=== PATIENT | male | born 1990 | race Two or more races ===

== ENCOUNTER 2020-11-11 17:54 | Emergency (ER) | payer SELFPAY ==
[2020-11-11] MEDS ORDERED: predniSONE 20 MG TABLET PO STA (18:36)
[2020-11-11] MEDS ORDERED: IPRATROPIUM/ALBUTEROL 3 ML NEB INH STA (18:36)
[2020-11-11] MEDS ORDERED: IPRATROPIUM/ALBUTEROL 3 ML NEB INH ONE (19:11)
--- NOTE | 2020-11-11 19:25 | XRAY Report ---
PROCEDURE: Chest 1 View X-Ray INDICATIONS: cough, wheezing, fever TECHNIQUE: One view of the chest was acquired. COMPARISON: None FINDINGS: Surgical changes and devices: None. Lungs and pleura: No pleural effusions or pneumothorax. Lungs are clear. Mediastinum: Mediastinal contours appear normal. Heart size is normal. Bones and chest wall: No suspicious bony lesions. Overlying soft tissues appear unremarkable. IMPRESSION: No acute process. Reviewed by: Luis Xiong MD on 11/11/2020 7:23 PM PDT Approved by: Lius Xiong MD on 11/11/2020 7:23 PM PDT Station ID: [id number]
[2020-11-11] MEDS ORDERED: predniSONE 20 MG TABLET ONE (19:35)
[2020-11-11 19:54] LABS: VBG BASE EXCESS -1.5 mmol/L (-2 - +2); VBG HCO3 22.3 mmol/L (23-28); VBG OXYGEN SATURATION 70.7 % (60-80); VBG PCO2 35.6 mmHg (41-51); VBG PH 7.415 (7.31-7.41); VBG PO2 33.8 mmHg (25-47); VBG TOTAL CO2 23.4 mmol/L (24-29)
[2020-11-11 19:57] LABS: BASOPHILS % (AUTO) 0.3 %; EOSINOPHILS # (AUTO) 0.1 10^3/uL (0.0-0.7); EOSINOPHILS % (AUTO) 1.9 %; HCT - HEMATOCRIT 48.7 % (42.0-52.0); HGB - HEMOGLOBIN 16.6 g/dL (14.0-18.0); LYMPHOCYTES # (AUTO) 1.6 10^3/uL (1.5-3.5); LYMPHOCYTES % (AUTO) 26.5 %; MEAN CORPUSCULAR HEMOGLOBIN 29.6 pg (27.0-31.0); MEAN CORPUSCULAR HGB CONC 34.1 g/dL (32.0-36.0); MEAN PLATELET VOLUME 10.7 fL (7.4-11.4); MONOCYTES # (AUTO) 0.9 10^3/uL (0.0-1.0); MONOCYTES % (AUTO) 14.2 %; NEUTROPHILS # (AUTO) 3.5 10^3/uL (1.5-6.6); NEUTROPHILS % (AUTO) 56.9 %; PLT - PLATELET COUNT 221 10^3/uL (130-450); RED CELL DISTRIBUTION WIDTH 12.4 % (12.0-15.0); WHITE BLOOD COUNT 6.2 x10^3/uL (4.8-10.8)
[2020-11-11 20:00] LABS: KETONES, SERUM (ACETEST) SMALL (NEGATIVE)
[2020-11-11 20:07] LABS: ALBUMIN 3.8 g/dL (3.2-5.5); ALBUMIN/GLOBULIN RATIO 1.2 (1.0-2.2); ALKALINE PHOSPHATASE 85 IU/L (42-121); ALT ALANINE AMINOTRANSFERASE 23 IU/L (10-60); AST ASPARTATE AMINOTRANSFERASE 23 IU/L (10-42); BILIRUBIN,TOTAL 0.7 mg/dL (0.2-1.0); BUN - BLOOD UREA NITROGEN 13 mg/dL (6-20); CALCIUM 8.3 mg/dL (8.5-10.3); CARBON DIOXIDE - CO2 21 mmol/L (21-32); CHLORIDE 94 mmol/L (101-111); CREATININE 1.1 mg/dL (0.6-1.2); GFR - MDRD 78 (>89); GLUCOSE 370 mg/dL (70-100); LIPASE 17 U/L (22-51); SODIUM 130 mmol/L (135-145)
--- NOTE | 2020-11-11 20:12 | ED Physician Documentation ---
History of Present Illness - Stated complaint Stated Complaint: POST SHOT SOA & FEVER - Chief complaint Chief Complaint: General - History obtained from History obtained from: Patient - History of Present Illness Timing: How many days ago (3) Pain level max: 2 Pain level now: 2 - Additonal information Additional information: Patient is a 30-year-old male who received his first Covid vaccination 4 days ago. 3 days ago started feeling ill, body aches, fevers, cough, dyspnea. History of asthma and type I diabetic. He is a smoker. 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 He states that his inhaler is not helping at home. Review of Systems Ten Systems: 10 systems reviewed and negative Constitutional: reports: Fever, Chills Nose: denies: Rhinorrhea / runny nose, Congestion GI: denies: Vomiting, Diarrhea Skin: denies: Rash Musculoskeletal: denies: Neck pain, Back pain Neurologic: denies: Headache PD PAST MEDICAL HISTORY - Present Medications Home Medications: Ambulatory Orders Medication Instructions Recorded Confirmed predniSONE [Deltasone] 10 mg PO [id number] #42 tab 11/11/20 - Allergies Allergies/Adverse Reactions: Allergies Allergy/AdvReac Type Severity Reaction Status Date / Time No Known Drug Allergies Allergy Verified 11/11/20 18:05 PD ED PE NORMAL - Vitals Vital signs reviewed: Yes - General General: Alert and oriented X 3, No acute distress, Well developed/nourished - HEENT HEENT: PERRL, Moist mucous membranes - Neck Neck: Supple, no meningeal sign - Cardiac Cardiac: RRR - Respiratory Respiratory: Other (Diminished breath sounds and wheezing bilaterally, mild distress) - Abdomen Abdomen: Soft, Non tender, Non distended - Derm Derm: Warm and dry - Extremities Extremities: No edema - Neuro Neuro: Alert and oriented X 3 - Psych Psych: Normal mood, Normal affect Results - Vitals Vitals: Vital Signs - 24 hr 11/11/20 11/11/20 11/11/20 18:05 19:07 20:00 Temperature 37.9 C Heart Rate 120 H 120 H 115 H Respiratory 18 22 18 Rate Blood Pressure 134/82 H 129/94 H O2 Saturation 97 97 11/11/20 21:20 Temperature 36.6 C Heart Rate 90 Respiratory 18 Rate Blood Pressure 130/90 H O2 Saturation 98 Oxygen O2 Source Room air - Labs Labs: Laboratory Tests 11/11/20 11/11/20 11/11/20 18:55 19:15 19:49 WBC 6.2 RBC 5.60 Hgb 16.6 Hct 48.7 MCV 87.0 MCH 29.6 MCHC 34.1 RDW 12.4 Plt Count 221 MPV 10.7 Neut # (Auto) 3.5 Lymph # (Auto) 1.6 [place] # (Auto) 0.9 Eos # (Auto) 0.1 Baso # (Auto) 0.0 Absolute Nucleated RBC 0.00 Nucleated RBC % 0.0 VBG pH VBG pCO2 VBG pO2 VBG HCO3 VBG Total CO2 VBG O2 Saturation VBG Base Excess Sodium Potassium Chloride Carbon Dioxide Anion Gap BUN Creatinine Estimated GFR (MDRD) Glucose POC Whole Bld Glucose 398 H Calcium Total Bilirubin AST ALT Alkaline Phosphatase Total Protein Albumin Globulin Albumin/Globulin Ratio Lipase Urine Color Urine Clarity Urine pH Ur Specific [place] Urine Protein Urine Glucose (UA) Urine Ketones Urine Occult Blood Urine Nitrite Urine Bilirubin Urine Urobilinogen Ur Leukocyte Esterase Ur Microscopic Review Urine Culture Comments Nasal Adenovirus (PCR) NOT DETECTED Nasal B. parapertussis DNA (PCR) NOT DETECTED Nasal Coronavir 229E PCR NOT DETECTED Nasal Coronavir HKU1 PCR NOT DETECTED Nasal Coronavir NL63 PCR NOT DETECTED Nasal Coronavir OC43 PCR NOT DETECTED Nasal Enterovir/Rhinovir PCR NOT DETECTED Nasal Influenza B PCR NOT DETECTED Nasal Influenza A PCR NOT DETECTED Nasal Parainfluen 1 PCR NOT DETECTED Nasal Parainfluen 2 PCR NOT DETECTED Nasal Parainfluen 3 PCR NOT DETECTED Nasal Parainfluen 4 PCR NOT DETECTED Nasal RSV (PCR) NOT DETECTED Nasal B.pertussis DNA PCR NOT DETECTED Nasal C.pneumoniae (PCR) NOT DETECTED John Human Metapneumo PCR NOT DETECTED Nasal M.pneumoniae (PCR) NOT DETECTED Nasal SARS-CoV-2 (PCR) DETECTED A Serum Ketones 11/11/20 11/11/20 11/11/20 19:49 19:49 20:11 WBC RBC Hgb Hct MCV MCH MCHC RDW Plt Count MPV Neut # (Auto) Lymph # (Auto) [place] # (Auto) Eos # (Auto) Baso # (Auto) Absolute Nucleated RBC Nucleated RBC % VBG pH 7.415 H VBG pCO2 35.6 L VBG pO2 33.8 VBG HCO3 22.3 L VBG Total CO2 23.4 L VBG O2 Saturation 70.7 VBG Base Excess -1.5 Sodium 130 L Potassium 4.0 Chloride 94 L Carbon Dioxide 21 Anion Gap 15.0 H BUN 13 Creatinine 1.1 Estimated GFR (MDRD) 78 L Glucose 370 H POC Whole Bld Glucose Calcium 8.3 L Total Bilirubin 0.7 AST 23 ALT 23 Alkaline Phosphatase 85 Total Protein 7.0 Albumin 3.8 Globulin 3.2 Albumin/Globulin Ratio 1.2 Lipase 17 L Urine Color YELLOW Urine Clarity CLEAR Urine pH 6.5 Ur Specific [place] <=1.005 Urine Protein NEGATIVE Urine Glucose (UA) >=1000 H Urine Ketones 15 H Urine Occult Blood NEGATIVE Urine Nitrite NEGATIVE Urine Bilirubin NEGATIVE Urine Urobilinogen 0.2 (NORMAL) Ur Leukocyte Esterase NEGATIVE Ur Microscopic Review NOT INDICATED Urine Culture Comments NOT INDICATED Nasal Adenovirus (PCR) Nasal B. parapertussis DNA (PCR) Nasal Coronavir 229E PCR Nasal Coronavir HKU1 PCR Nasal Coronavir NL63 PCR Nasal Coronavir OC43 PCR Nasal Enterovir/Rhinovir PCR Nasal Influenza B PCR Nasal Influenza A PCR Nasal Parainfluen 1 PCR Nasal Parainfluen 2 PCR Nasal Parainfluen 3 PCR Nasal Parainfluen 4 PCR Nasal RSV (PCR) Nasal B.pertussis DNA PCR Nasal C.pneumoniae (PCR) John Human Metapneumo PCR Nasal M.pneumoniae (PCR) Nasal SARS-CoV-2 (PCR) Serum Ketones SMALL H - Rads (name of study) Chest x-ray Radiology: Final report received, EMP read contemporaneously, See rad report (No acute disease) PD MEDICAL DECISION MAKING - ED course Complexity details: reviewed results, re-evaluated patient, considered differential, d/w patient ED course: 30-year-old male, history of asthma, diabetes, smokes cigarettes. Patient was started on steroids and a nebulizer. Feels much better. No hypoxia or further respiratory distress. Monoclonal antibody therapy is to receive this therapy. A steroid taper was also sent to the pharmacy for him. He states he has plenty of albuterol at home. Speaking in full sentences without difficulty. Patient counseled regarding signs and symptoms for which I believe and urgent re- evaluation would be necessary. Patient with good understanding of and agreement to plan and is comfortable going home at this time This document was made in part using voice recognition software. While efforts are made to proofread this document, sound alike and grammatical errors may occur. Departure - Departure Disposition: 01 Home, Self Care Clinical Impression: COVID-19, Hyperglycemia Condition: Good Instructions: COVID-19 [facility] Statement Follow-Up: your,doctor as needed [Other] Prescriptions: predniSONE [Deltasone] 10 mg PO [id number] #42 tab Comments: Your covid test is positive tonight. You need to stay quarantined for 2 weeks. You should complete your vaccination series as well. Your diabetes and asthma, you are a candidate for monoclonal antibody therapy. This can be given over a 2-hour infusion during the daytime. You can return tomorrow between 9 and 4 to receive the infusion. Your prescription was sent to [facility] in [place]. Please keep a close eye on your blood sugars as well. Discharge Date/Time: 11/11/20 21:20
[2020-11-11 20:23] LABS: CORONAVIRUS 229E-RESP PCR NOT DETECTED; CORONAVIRUS HKU1-RESP PCR NOT DETECTED; CORONAVIRUS NL63-RESP PCR NOT DETECTED; CORONAVIRUS OC43-RESP PCR NOT DETECTED
[2020-11-11 20:25] LABS: B. PARAPERTUSSIS- RESP PCR PAN NOT DETECTED; B. PERTUSSIS- RESP PCR PANEL NOT DETECTED; C. PNEUMONIAE- RESP PCR PANEL NOT DETECTED; HUMAN METAPNEUMOVIRUS NOT DETECTED; INFLUENZA A- RESP PCR PANEL NOT DETECTED; INFLUENZA B - RESP PCR PANEL NOT DETECTED; M. PNEUMONIAE- RESP PCR PANEL NOT DETECTED; PARAINFLUENZA VIRUS 1 NOT DETECTED; PARAINFLUENZA VIRUS 2 NOT DETECTED; PARAINFLUENZA VIRUS 3 NOT DETECTED; PARAINFLUENZA VIRUS 4 NOT DETECTED; RHINOVIRUS/ENTEROVIRUS NOT DETECTED; RSV- RESP PCR PANEL NOT DETECTED; SARS-CoV-2 -RESP PCR PANEL DETECTED
[2020-11-11 20:28] LABS: BILIRUBIN,URINE NEGATIVE (NEGATIVE); CLARITY,URINE CLEAR (CLEAR); GLUCOSE, URINE (UA) >=1000 mg/dL (NEGATIVE); KETONES,URINE (UA) 15 mg/dL (NEGATIVE); LEUKOCYTE ESTERASE, URINE NEGATIVE (NEGATIVE); NITRITE,URINE NEGATIVE (NEGATIVE); OCCULT BLOOD,URINE NEGATIVE (NEGATIVE); PH,URINE 6.5 PH (5.0-7.5); PROTEIN,URINE NEGATIVE (NEGATIVE); UROBILINOGEN,URINE 0.2 (NORMAL) E.U./dL (NORMAL)
[2020-11-11 21:21] VITALS: BP 130/90
== END 2020-11-11 21:20 | disposition home or self-care (01) ==
LOC: ED 17:54
DX: U07.1 COVID-19 (principal); E11.65 Type 2 diabetes mellitus with hyperglycemia; F17.210 Nicotine dependence, cigarettes, uncomplicated
CPT/HCPCS: 0202U; 36415; 71045; 80053; 81003; 82009; 82803; 83690; 85025; 94640; 94664; 99283; 99284; J7512; 81001; 87086

== ENCOUNTER 2020-11-13 10:13 | Emergency (ER) | payer SELFPAY ==
--- NOTE | 2020-11-13 11:58 | ED Physician Documentation ---
History of Present Illness - Stated complaint Stated Complaint: C+ - Chief complaint Chief Complaint: Resp - History obtained from History obtained from: Patient - Additonal information Additional information: This is a 30-year-old who was seen in the emergency department on Thursday tested positive for CovidBy PCR testing. He was given prednisone and discharged. Told to return yesterday for monoclonal antibody therapy he is not on oxygen. He says he felt too bad yesterday to return yesterday. Has general body aches. No vomiting. Review of Systems Constitutional: reports: Chills, Myalgias, Fatigue Nose: reports: Congestion Respiratory: reports: Dyspnea, Cough GI: denies: Nausea, Vomiting Neurologic: reports: Generalized weakness PD PAST MEDICAL HISTORY - Past Medical History Past Medical History: Yes Cardiovascular: Murmur Respiratory: Asthma, Shortness of breath Neuro: None Endocrine/Autoimmune: Type 1 diabetes GI: None : None HEENT: Dental implants Psych: Depression Musculoskeletal: None Derm: Herpes zoster Other Past Medical History: dx with DM at age 17, uses insulin pump - Past Surgical History Past Surgical History: Yes General: Other - Present Medications Home Medications: Ambulatory Orders Medication Instructions Recorded Confirmed predniSONE [Deltasone] 10 mg PO [id number] #42 tab 11/11/20 11/13/20 Insulin Pump Cartridge [Omnipod] 1 each SQ 11/13/20 buPROPion [Wellbutrin Sr] 1 tab ORAL DAILY 11/13/20 11/13/20 - Allergies Allergies/Adverse Reactions: Allergies Allergy/AdvReac Type Severity Reaction Status Date / Time No Known Drug Allergies Allergy Verified 11/11/20 18:05 - Social History Does the pt smoke?: Yes Smoking Status: Current every day smoker Does the pt drink ETOH?: Yes ETOH Use: Beer Does the pt have substance abuse?: Yes Substance Use and Type: Cocaine/Crack - Immunizations Immunizations are current?: Yes - POLST Patient has POLST: No PD ED PE NORMAL - Vitals Vital signs reviewed: Yes - General General: Alert and oriented X 3, No acute distress, Well developed/nourished - HEENT HEENT: Atraumatic, PERRL - Cardiac Cardiac: RRR (mild tahycardia), No murmur - Respiratory Respiratory: No respiratory distress, Other (Diffuse wheezing; Cough) - Abdomen Abdomen: Normal bowel sounds, Soft - Neuro Neuro: Alert and oriented X 3, No motor deficit, No sensory deficit, Normal speech Results - Vitals Vitals: Vital Signs - 24 hr 11/13/20 11/13/20 11/13/20 10:36 10:47 12:28 Temperature 36.8 C 38.8 C H Heart Rate 120 H 93 98 Respiratory 13 13 15 Rate Blood Pressure 111/74 111/74 123/80 O2 Saturation 97 99 96 Oxygen O2 Source Room air PD MEDICAL DECISION MAKING - ED course Complexity details: d/w patient ED course: Patient tested positive here 3 days ago for COVID-19. His oxygen saturation is 99% on room air and he is not a candidate for hospitalization.He meets criteria for monoclonal antibody treatments and pharmacy has been consulted to place the order. Departure - Departure Disposition: 01 Home, Self Care Clinical Impression: COVID-19 Condition: Good Comments: You must still isolate for 10 days from the diagnosis of Covid on 11-10-20. Continue the medications prescribed on 11-10-20. Return if you have difficulty breathing, vomiting and unable to keep anything down or other problems arise.
[2020-11-13] MEDS ORDERED: CASIRIVIMAB/IMDEVIMAB 10 ML in SODIUM CHLORIDE 0.9% 50 ML IV ONE (12:40)
[2020-11-13] MEDS ORDERED: ACETAMINOPHEN 325 MG TABLET PO STA (13:26)
[2020-11-13 14:13] VITALS: BP 113/73
== END 2020-11-13 14:13 | disposition home or self-care (01) ==
LOC: ED 10:13
DX: U07.1 COVID-19 (principal); E10.9 Type 1 diabetes mellitus without complications; Z79.4 Long term (current) use of insulin; Z96.41 Presence of insulin pump (external) (internal); F17.200 Nicotine dependence, unspecified, uncomplicated
CPT/HCPCS: 36415; 99283; 99284; A9270; J7040; M0243; Q0244

== ENCOUNTER 2020-11-23 02:05 | Outpatient (CLI) | payer SELFPAY | END 2020-11-23 02:06 | disposition left against medical advice (07) | LOC: EMS 02:05 | DX: R41.0 Disorientation, unspecified (principal); E10.9 Type 1 diabetes mellitus without complications ==